=== PATIENT | female | born 1990 | race Caucasian/White ===

== ENCOUNTER 2017-11-11 17:46 | Emergency (ER) | payer BC, OTHER ==
[2017-11-11] VITALS (9 sets, daily range): BP systolic 121–129; BP diastolic 79–80; PULSE 82–98
[~2017-11-11 17:46] MED LIST: LORTA5 PO; NAPR500 OR; TRAM50 PO
--- NOTE | 2017-11-11 19:02 | PD ---
HPI Chief Complaint Elevated blood pressure Date Seen: Nov 11, 2017 Time Seen: 18:59 Travel History International Travel<30 Days: No Contact w/Intl Traveler<30Days: No Known Affected Area: No History of Present Illness HPI 27-year-old who is 38 weeks 3 days comes in with elevated blood pressure. She was seen in the office yesterday with a slight elevation of blood pressure was sent for blood work but does not have any results. She felt some abdominal pressure, had some visual changes, and felt that she had a headache so she went to [facility] ([facility] to get her blood pressure checked and it was 136/92. No other concerns during the and has otherwise been healthy. She does not remember her urine dip protein level in the office she did have a cervical exam she was 2 cm. Weeks Gestation: 38 Para: 0 : 2 History Past Medical History Medical History: Denies Significant Hx Past Surgical History Narrative Surgical Septoplasty and left knee surgery Family History Family History: Negative Social History Alcohol Use: No Tobacco Use: No Substance Abuse: No Allergies-Medications (Allergen,Severity, Reaction): Coded Allergies: ibuprofen (Unverified Allergy, Severe, hives, rash, SOB, 11/11/17) Home Meds Active Scripts Tramadol Hcl (Ultram) 50 Mg Tab, 50 MG PO Q6 for 5 Days FOR PAIN Prov:Eliud Oneal MD 09/19/13 Naproxen (Naprosyn) 500 Mg Tab, 500 MG OR BID for 10 Days Prov:Eliud Oneal MD 09/19/13 Hydrocodone/Acetaminophen 5 mg/325 mg (Hydrocodone/Acetaminophen 5 mg/325 mg) 1 Tab Tab, 1 TAB PO QID Y for PAIN, #20 Prov:GUILLERMO TAVERA M.D. 09/13/13 Review of Systems Except as stated in HPI: all other systems reviewed are Neg Physical Exam Narrative GENERAL: Well-nourished, well-developed patient. SKIN: Warm and dry. HEAD: Normocephalic and atraumatic. EYES: No scleral icterus. No injection or drainage. ENT: No nasal drainage noted. Mucous membranes pink. Airway patent. NECK: Supple, trachea midline. No JVD. CARDIOVASCULAR: Regular rate and rhythm without murmurs, gallops, or rubs. RESPIRATORY: Breath sounds equal bilaterally. No accessory muscle use. ABDOMEN/GI: Abdomen soft, non-tender, bowel sounds present, no rebound, no guarding Gravid to [-] weeks size Fundal Height: [-] GENITOURINARY: Deferred External Genitalia: intact and normal in appearance BUS glands: [-] Cervix: [-] Dilatation: [-] Effacement: [-] Station: [-] Presentation: [-] Membranes: [intact or ruptured] Uterine Contractions: [-] FHT's: Category: [-] 1 Baseline: [-] 140 Reactive: [-] Moderate Variability: [-] Moderate Decels: [-] Absent EXTREMITIES: No cyanosis, 1+ edema. BACK: Nontender without obvious deformity. No CVA tenderness. NEUROLOGICAL: Awake and alert. Motor and sensory grossly within normal limits. Five out of 5 muscle strength in all muscle groups. Normal speech. Data Data Vital Signs Reviewed: Yes Labs Laboratory Tests Test 11/11/17 18:10 11/11/17 18:49 Urine Color LIGHT-YELLOW Urine Turbidity CLEAR Urine pH 6.0 Urine Specific [place] Mark 1.010 Urine Protein NEG mg/dL Urine Glucose (UA) NEG mg/dL Urine Ketones NEG mg/dL Urine Occult Blood NEG Urine Nitrite NEG Urine Bilirubin NEG Urine Urobilinogen LESS THAN 2.0 MG/DL Urine Leukocyte Esterase TRACE Urine RBC 1 /hpf Urine WBC 3 /hpf Urine Squamous Epithelial Cells 3 /hpf Urine Bacteria FEW /hpf Urine Hyaline Casts 2 /lpf Microscopic Urinalysis Comment CULT NOT INDICATED Urine Random Creatinine 55 MG/DL Urine Random Total Protein 9 MG/DL Urine Protein/Creatinine Ratio 0.16 White Blood Count 10.4 TH/MM3 Red Blood Count 4.54 MIL/MM3 Hemoglobin 11.4 GM/DL Hematocrit 34.3 % Mean Corpuscular Volume 75.7 FL Mean Corpuscular Hemoglobin 25.1 PG Mean Corpuscular Hemoglobin Concent 33.2 % Red Cell Distribution Width 15.6 % Platelet Count 250 TH/MM3 Mean Platelet Volume 8.3 FL Blood Urea Nitrogen 10 MG/DL Creatinine 0.75 MG/DL Random Glucose 86 MG/DL Total Protein 6.8 GM/DL Albumin 2.7 GM/DL Calcium Level 8.7 MG/DL Uric Acid 4.2 MG/DL Alkaline Phosphatase 171 U/L Aspartate Amino Transf (AST/SGOT) 21 U/L Alanine Aminotransferase (ALT/SGPT) 22 U/L Total Bilirubin 0.3 MG/DL Sodium Level 137 MEQ/L Potassium Level 3.7 MEQ/L Chloride Level 103 MEQ/L Carbon Dioxide Level 24.7 MEQ/L Anion Gap 9 MEQ/L Estimat Glomerular Filtration Rate 93 ML/MIN [facility] Medical Record Reviewed: Yes Plan 27-year-old who is 38 weeks 3 days with mildly elevated blood pressures, normal preeclampsia workup, no proteinuria Continue bedrest is recommended by her physician with follow-up to her OB provider as already scheduled Diagnosis Diagnosis: Primary Impression: 38 weeks gestation of Additional Impression: Elevated blood pressure affecting in third trimester, antepartum Disposition: 01 DISCHARGE HOME Noemi Jara MD Nov 11, 2017 19:02
[2017-11-11] MEDS ORDERED: ACETAMINOPHEN 325 MG TAB PO ONE (19:15)
[2017-11-11] MEDS ORDERED: ONDANSETRON HCL 4 MG/2 ML VIAL IV PUSH ONE (19:15)
[2017-11-11 19:35] LABS: HEMATOCRIT 34.3 % (35.0-46.0); HEMOGLOBIN 11.4 GM/DL (11.6-15.3); MEAN CELL VOLUME 75.7 FL (80.0-100.0); MEAN CORPUSCULAR HEMOGLOBIN 25.1 PG (27.0-34.0); MEAN CORPUSCULAR HGB CONC 33.2 % (32.0-36.0); MEAN PLATELET VOLUME 8.3 FL (7.0-11.0); PLATELET COUNT 250 TH/MM3 (150-450); RED BLOOD COUNT 4.54 MIL/MM3 (4.00-5.30); RED CELL DISTRIBUTION WIDTH 15.6 % (11.6-17.2); WHITE BLOOD COUNT 10.4 TH/MM3 (4.0-11.0)
[2017-11-11 19:37] LABS: BACTERIA, URINE FEW /hpf; BILIRUBIN, URINE NEG (NEG); BLOOD, URINE NEG (NEG); GLUCOSE,URINE NEG (NEG); HYALINE CAST, URINE 2 /lpf (RARE); KETONE, URINE NEG (NEG); NITRITE,URINE NEG (NEG); SQUAMOUS EPITHELIAL CELL URINE 3 /hpf (0-5); URINE COLOR LIGHT-YELLOW (YELLW/STRAW); URINE LEUKOCYTE ESTERASE TRACE (NEG)
[2017-11-11 19:56] LABS: ALBUMIN 2.7 GM/DL (3.4-5.0); ALT (GPT) 22 U/L (10-53); AST (GOT) 21 U/L (15-37); BICARBONATE 24.7 MEQ/L (21.0-32.0); BLOOD UREA NITROGEN 10 MG/DL (7-18); CALCIUM 8.7 MG/DL (8.5-10.1); CHLORIDE 103 MEQ/L (98-107); CREATININE 0.75 MG/DL (0.50-1.00); GLOMERULAR FILTRATION RATE 93 ML/MIN (>89); GLUCOSE,RANDOM 86 MG/DL (74-106); SODIUM (NA) 137 MEQ/L (136-145)
[2017-11-11 19:58] LABS: ALKALINE PHOSPHATASE 171 U/L (45-117); TOTAL BILIRUBIN ADULT 0.3 MG/DL (0.2-1.0); TOTAL PROTEIN 6.8 GM/DL (6.4-8.2)
== END 2017-11-11 20:19 | disposition home or self-care (01) ==
LOC: HOBED 17:46
DX: O26.893 Other specified pregnancy related conditions, third trimester (principal); R03.0 Elevated blood-pressure reading, without diagnosis of hypertension; Z3A.38 38 weeks gestation of pregnancy
CPT/HCPCS: 36415; 59025; 80053; 81001; 82570; 84112; 84156; 84550; 85027

== ENCOUNTER 2017-11-17 20:14 | Emergency (ER) | payer BC ==
[~2017-11-17] VITALS: Ht 167.6 cm; Wt 79.4 kg
[2017-11-17] MEDS ORDERED: ONDANSETRON ODT 4 MG TAB PO ONE (21:30)
[2017-11-17] MEDS ORDERED: ZOFR4TAB3 SL (21:34)
--- NOTE | 2017-11-17 21:34 | PD ---
HPI Chief Complaint Complains of contractions & nausea and vomiting for 24 hours Date Seen: November 17, 2017 Time Seen: 21:25 Travel History International Travel<30 Days: No Contact w/Intl Traveler<30Days: No Known Affected Area: No History of Present Illness HPI 27-year-old white female 39 weeks patient of who presents with contractions that have been going on all day and nausea and vomiting for 24 hours her family states she has held nothing down for 24 hours, she is taking no medication at all for this. heart rate tracing is reactive and she is blayne every 2 minutes Weeks Gestation: 39 Para: 0 : 2 Miscarriage: 1 History Obstetric History Obstetric History 1 early loss Social History Alcohol Use: No Tobacco Use: No Substance Abuse: No Allergies-Medications (Allergen,Severity, Reaction): Coded Allergies: ibuprofen (Unverified Allergy, Severe, hives, rash, SOB, 11/11/17) Home Meds Active Scripts Tramadol Hcl (Ultram) 50 Mg Tab, 50 MG PO Q6 for 5 Days FOR PAIN Prov:Eliud Oneal MD 09/19/13 Naproxen (Naprosyn) 500 Mg Tab, 500 MG OR BID for 10 Days Prov:Eliud Oneal MD 09/19/13 Hydrocodone/Acetaminophen 5 mg/325 mg (Hydrocodone/Acetaminophen 5 mg/325 mg) 1 Tab Tab, 1 TAB PO QID Y for PAIN, #20 Prov:GUILLERMO TAVERA M.D. 09/13/13 Review of Systems General / Constitutional: No: Fever, Weight Gain, Chills, Other Eyes: No: Diploplia, Blurred Vision, Visual changes, Pain, Photophobia HENT: No: Headaches, Vertigo, Lightheadedness Cardiovascular: No: Irregular Rhythm, Chest Pain or Discomfort, Palpitations, Tachycardia, Syncope, Varicosities, Edema, Cyanosis Respiratory: No: Cough, Short of Breath, Other Gastrointestinal: Nausea, Vomiting, Diarrhea, Abdominal Pain Genitourinary: No: Decreased Urinary Output, Oliguria Musculoskeletal: No: Limited ROM, Weakness, Cramping, Edema, Pain Skin: No Rash, No Itching, No Dryness, No Lumps, No Change in Pigmentation, No Change in Nails, No Alopecia, No Lesions Neurologic: No: Weakness, Dizziness, Syncope, Focal Abnormalities, Coordination Problem, Headache, Slurred Speech, Seizures Psychiatric: No: Depression, Suicidal Ideations, Homicidal Ideation Endocrine: No: Heat Intolerance, Cold Intolerance, Polydipsia, Polyuria, Other Physical Exam Narrative GENERAL: Well-nourished, well-developed patient. SKIN: Warm and dry. HEAD: Normocephalic and atraumatic. EYES: No scleral icterus. No injection or drainage. ENT: No nasal drainage noted. Mucous membranes pink. Airway patent. NECK: Supple, trachea midline. No JVD. CARDIOVASCULAR: Regular rate and rhythm without murmurs, gallops, or rubs. RESPIRATORY: Breath sounds equal bilaterally. No accessory muscle use. BREASTS: Bilateral exam showed no masses , no retractions, no nipple discharge. ABDOMEN/GI: Abdomen soft, non-tender, bowel sounds present, no rebound, no guarding Gravid to [-39] weeks size Fundal Height: [39-] GENITOURINARY: External Genitalia: intact and normal in appearance BUS glands: [-] Cervix: [post-] Dilatation: [-3] Effacement: [-50] Station: [-3] Presentation: [vtx-] Membranes: [intact ] Uterine Contractions: [-q 2 min] FHT's: Category: [-1] Baseline: [133-] Reactive: [-R] Variability: [-mod] Decels: [-none] EXTREMITIES: No cyanosis or edema. BACK: Nontender without obvious deformity. No CVA tenderness. NEUROLOGICAL: Awake and alert. Motor and sensory grossly within normal limits. Five out of 5 muscle strength in all muscle groups. Normal speech. Data Data Orders Orders Ondansetron Odt (Zofran Odt) (11/17/17 21:30) Labs Urine dip within normal limits MDM Interpretation(s) Patient is 27-year-old white female 39 weeks patient to the [facility] clinic presents with contraction of nausea vomiting, cervix is essentially unchanged from when she was checked in the office today she is 3/50/-3/vertex, she is blayne every 2 minutes at this time and she says that she makes no clinic signs show significant pain. heart tracing is reactive contractions as above Plan Plan the patient is to go home this evening for observation return for increasing pain, bleeding, leakage of fluid. She was given the option to stay in the hospital might proceed with IV fluid because of vomiting but she would rather try Zofran ODT and see if that allow her to stay home for the next 12-24 hours. I relayed to the patient if she is going to go into labor, cervix approximately 12 hours before she is in a more labor pattern with change of the cervix Diagnosis Diagnosis: Primary Impression: Shar Wyman contractions Additional Impressions: Nausea and vomiting during 39 weeks gestation of Disposition: 01 DISCHARGE HOME Condition: Stable Scripts Ondansetron Odt (Zofran Odt) 4 Mg Tab 4 MG SL Q6HR Y for Nausea/Vomiting, #10 TAB 0 Refills Prov: Dhiraj Moon II, MD 11/17/17 Dhiraj Moon II, MD November 17, 2017 21:34
== END 2017-11-17 21:51 | disposition home or self-care (01) ==
LOC: HOBED 20:14
DX: O47.1 False labor at or after 37 completed weeks of gestation (principal); O21.2 Late vomiting of pregnancy; Z3A.39 39 weeks gestation of pregnancy; Z79.899 Other long term (current) drug therapy
CPT/HCPCS: 99284

== ENCOUNTER 2017-11-19 05:15 | Inpatient (IN) | payer BC ==
[2017-11-19] VITALS (104 sets, daily range): BP systolic 96–149; BP diastolic 61–111; PULSE 56–118; RESP 16–20; TEMP 98.2–98.4; O2SAT 100
[~2017-11-19] VITALS: Ht 167.6 cm; Wt 79.0 kg
[~2017-11-19 05:15] MED LIST changes: +ZOFR4TAB3 SL
[2017-11-19] MEDS ORDERED: LACTATED RINGER'S 1000 ML INJ 1,000 ML IV PRN (06:01)
--- NOTE | 2017-11-19 06:01 | HHI.HP ---
History & Physical H&P HPI HPI Chief Complaint Contractions Date Seen: November 19, 2017 Time Seen: 05:54 Travel History International Travel<30 Days: No Contact w/Intl Traveler<30Days: No Known Affected Area: No History of Present Illness HPI 27-year-old primigravida with EDC of 11/23/2017 who presents with increasing contractions since 11 PM last night. She denies leakage of fluid or bleeding. She was 3 cm dilated on Monday and is now 4-5 cm 70% effaced, vertex, -2 station. History (Limited) History Past Medical History Medical History: Denies Significant Hx Obstetric History Obstetric History Primigravida under the care of Dr. Farooq, GBS negative Second trimester urinary tract infection treated Past Surgical History Narrative Surgical Nasal septal surgery, left knee surgery Family History Family History: Negative Social History Alcohol Use: No Tobacco Use: No Substance Abuse: No Allergies-Medications Allergies-Medications (Allergen,Severity, Reaction): Coded Allergies: ibuprofen (Unverified Allergy, Severe, hives, rash, SOB, 11/11/17) Home Meds Active Scripts Ondansetron Odt (Zofran Odt) 4 Mg Tab, 4 MG SL Q6HR Y for Nausea/Vomiting, #10 TAB 0 Refills Prov:Dhiraj Moon II, MD 11/17/17 Tramadol Hcl (Ultram) 50 Mg Tab, 50 MG PO Q6 for 5 Days FOR PAIN Prov:Eliud Oneal MD 09/19/13 Naproxen (Naprosyn) 500 Mg Tab, 500 MG OR BID for 10 Days Prov:Eliud Oneal MD 09/19/13 Hydrocodone/Acetaminophen 5 mg/325 mg (Hydrocodone/Acetaminophen 5 mg/325 mg) 1 Tab Tab, 1 TAB PO QID Y for PAIN, #20 Prov:GUILLERMO TAVERA M.D. 09/13/13 ROS Review of Systems Except as stated in HPI: all other systems reviewed are Neg Physical Exam Physical Exam Narrative GENERAL: Well-nourished, well-developed patient. SKIN: Warm and dry. HEAD: Normocephalic and atraumatic. EYES: No scleral icterus. No injection or drainage. ENT: No nasal drainage noted. Mucous membranes pink. Airway patent. NECK: Supple, trachea midline. No JVD. CARDIOVASCULAR: Regular rate and rhythm without murmurs, gallops, or rubs. RESPIRATORY: Breath sounds equal bilaterally. No accessory muscle use. ABDOMEN/GI: Abdomen soft, non-tender, bowel sounds present, no rebound, no guarding Gravid to [-] weeks size Fundal Height: [-] GENITOURINARY: External Genitalia: intact and normal in appearance BUS glands: [-Negative] Cervix: [-] Dilatation: [-4-5] Effacement: [-70] Station: [--2] Presentation: [-v] Membranes: [intact] Uterine Contractions: [q2-4-] FHT's: Category: [-2] Baseline: [-] Reactive: [y-] Variability: [-mod] Decels: [-tabitha] EXTREMITIES: No cyanosis or edema. BACK: Nontender without obvious deformity. No CVA tenderness. NEUROLOGICAL: Awake and alert. Motor and sensory grossly within normal limits. Five out of 5 muscle strength in all muscle groups. Normal speech. Data Data Data Vital Signs Reviewed: Yes Group B Strep: Negative MDM MDM Medical Record Reviewed: Yes Narrative Course / MDM Assessment: Primigravida at 39 weeks in early labor Plan: Admit for labor management Eliud De Oliveira MD November 19, 2017 06:00 Eliud De Oliveira MD November 19, 2017 06:01
[2017-11-19] MEDS ORDERED: PRENTAB7 PO ×2 (06:14)
[2017-11-19] MEDS ORDERED: TYLE325T PO ×2 (06:14)
[2017-11-19] MEDS ORDERED: ONDANSETRON HCL 4 MG/2 ML VIAL IV PUSH PRN (06:15)
[2017-11-19] MEDS ORDERED: SODIUM CHLORID 0.9% 500 ML INJ 500 ML IV PRN (06:15)
[2017-11-19] MEDS ORDERED: LIDOCAINE HCL 1% 50 ML VIAL INFIL PRN (06:15)
[2017-11-19] MEDS ORDERED: OXYTOCIN 30 UNITS-500ML PREMIX 500 ML IV ONE (06:15)
[2017-11-19] MEDS ORDERED: CITRIC ACID-SODIUM CITRATE LIQ 30 ML UDC PO SCH (06:15)
[2017-11-19] MEDS ORDERED: MINERAL OIL 10 ML VIAL TOPICAL PRN (06:15)
[2017-11-19] MEDS ORDERED: LIDOCAINE HCL 1% 50 ML VIAL I-DERMAL PRN (06:15)
[2017-11-19] MEDS ORDERED: SODIUM CHLOR 0.9% 1000 ML INJ 1,000 ML IV PRN (06:21)
[2017-11-19] MEDS ORDERED: fentaNYL 2MCG-BUPIV 0.125% INJ 100 ML ONE (07:06)
[2017-11-19] MEDS ORDERED: ePHEDrine/NS 25 MG/5 ML SYRINGE ONE (07:09)
[2017-11-19 07:12] LABS: AUTOMATED NEUTROPHIL # 10.5 TH/MM3 (1.8-7.7); BASOPHIL % 0.2 % (0.0-2.0); EOSINOPHIL # 0.1 TH/MM3 (0-0.4); HEMATOCRIT 36.6 % (35.0-46.0); HEMOGLOBIN 11.9 GM/DL (11.6-15.3); LYMPH % 12.1 % (9.0-44.0); LYMPHOCYTE # 1.6 TH/MM3 (1.0-4.8); MEAN CELL VOLUME 76.2 FL (80.0-100.0); MEAN CORPUSCULAR HEMOGLOBIN 24.8 PG (27.0-34.0); MEAN CORPUSCULAR HGB CONC 32.5 % (32.0-36.0); MEAN PLATELET VOLUME 8.5 FL (7.0-11.0); MONO % 5.5 % (0.0-8.0); MONOCYTE # 0.7 TH/MM3 (0-0.9); NEUT % 81.2 % (16.0-70.0); PLATELET COUNT 278 TH/MM3 (150-450); RED CELL DISTRIBUTION WIDTH 15.7 % (11.6-17.2); WHITE BLOOD COUNT 12.9 TH/MM3 (4.0-11.0)
[2017-11-19] MEDS ORDERED: LIDOCAINE 1%/EPINEPHrine 1:200,000 PF SOLN 30 ML VIAL ONE (07:25)
[2017-11-19] MEDS: LACTATED RINGER'S 1000 ML INJ 1,000 ML IV SCH ×2 (07:33→11:08)
[2017-11-19] MEDS ORDERED: ePHEDrine/NS 25 MG/5 ML SYRINGE IV PUSH PRN (09:00)
[2017-11-19] MEDS ORDERED: fentaNYL 2MCG-BUPIV 0.125% 100 ML EPIDURAL PRN (09:00)
[2017-11-19] MEDS ORDERED: DO NOT ADMINISTER ANTICOAGULANTS PRN (09:00)
[2017-11-19] MEDS ORDERED: NO SYSTEM NARCOTICS PRN (09:00)
--- NOTE | 2017-11-19 09:44 | PD.LABORPN ---
Subjective Subjective Patient reports good relief with epidural. Objective Vital Signs Vital Signs Date Time Temp Pulse Resp B/P (MAP) Pulse Ox O2 Delivery O2 Flow Rate FiO2 11/19/17 09:25 74 11/19/17 09:20 78 11/19/17 09:16 75 129/81 (97) 11/19/17 09:15 85 11/19/17 09:05 72 11/19/17 09:00 73 126/74 (91) 11/19/17 09:00 66 11/19/17 09:00 16 11/19/17 08:55 67 11/19/17 08:50 74 11/19/17 08:46 78 11/19/17 08:45 82 11/19/17 08:40 82 11/19/17 08:35 82 11/19/17 08:31 76 121/74 (90) 11/19/17 08:30 82 11/19/17 08:25 76 11/19/17 08:20 79 11/19/17 08:16 85 135/74 (94) 11/19/17 08:15 85 11/19/17 08:10 78 11/19/17 08:10 84 126/75 (92) 11/19/17 08:05 89 11/19/17 08:05 87 123/64 (83) 11/19/17 08:00 86 11/19/17 08:00 82 125/82 (96) 11/19/17 08:00 98.4 11/19/17 07:55 85 16 126/74 (91) 11/19/17 07:50 89 126/78 (94) 11/19/17 07:50 89 11/19/17 07:45 93 138/86 (103) 11/19/17 07:45 92 11/19/17 07:40 86 11/19/17 07:35 84 11/19/17 07:35 129/84 (99) 11/19/17 07:31 82 136/92 (107) 11/19/17 07:30 82 Objective Pelvic Exam: Cervix: [-] Dilatation: [4-5-] Effacement: [90-] Station: [-2-] Presentation: [-v] Membranes: [ruptured, meconium fluid noted] Uterine Contractions: [-Irregular 2 to 4] FHT's: Category: [-1] Baseline: [-] Reactive: [-] Variability: [-Moderate] Decels: [-Rare variable] Gest Age Assessed Date: November 19, 2017 Gest Age Assessed Time: 09:43 Pt started active labor?: No Artificial rupture of membrane: Yes Artificial ROM date: November 19, 2017 Artifical ROM time: 09:33 Assessment/Plan Assessment and Plan Assessment: Primigravida in early labor, meconium Plan: IUPC was placed Eliud De Oliveira MD November 19, 2017 09:44
[2017-11-19] MEDS ORDERED: OXYTOCIN 30 UNITS-500ML PREMIX 500 ML IV PRN (11:15)
[2017-11-19] MEDS ORDERED: LIDOCAINE HCL 1% PF 30 ML VIAL ONE (14:20)
--- NOTE | 2017-11-19 14:29 | PD.OB.DELI ---
Gest age assessed date: November 19, 2017 Gest age assessed time: 09:43 Pt started active labor?: Yes Active labor start date: November 19, 2017 Active labor start time: 02:00 Artificial rupture of membrane: Yes Artificial ROM date: November 19, 2017 Artifical ROM time: 09:33 Anesthesia: Epidural Episiotomy: None Vaginal Delivery: Normal Presentation: Occiput anterior Nuchal Cord: x1 (easily reduced) Delayed cord clamping (45 sec): Yes (45 sec) Shoulder Dystocia: Naveed maneuver done : Male Delivery date: November 19, 2017 Delivery time: 14:16 One Minute : 8 Five Minute : 9 Placenta: Spontaneous delivery Laceration: Vaginal laceration, 1 deg (right lateral) Repair: Chromic interrupted Estimated blood loss: 200cc Eliud Casron MD November 19, 2017 14:29
[2017-11-19] MEDS ORDERED: ZOLPIDEM TARTRATE 5 MG TAB PO PRN (14:30)
[2017-11-19] MEDS ORDERED: IBUPROFEN 800 MG TAB PO PRN (14:30)
[2017-11-19] MEDS ORDERED: DOCUSATE SODIUM 50 MG/SENNA 8.6 MG TAB PO PRN (14:30)
[2017-11-19] MEDS ORDERED: OXYTOCIN 10 UNIT/ML AMP XX PRN (14:30)
[2017-11-19] MEDS ORDERED: ALUMINUM/MAGNESIUM/SIMETH 30 ML CUP PO PRN (14:30)
[2017-11-19] MEDS ORDERED: SODIUM CHLORIDE 0.9% FLUSH 10 ML FLUSH IV FLUSH PRN (14:30)
[2017-11-19] MEDS ORDERED: OXYTOCIN 30 UNITS-500ML PREMIX 500 ML IV SCH (14:30)
[2017-11-19] MEDS ORDERED: ONDANSETRON ODT 4 MG TAB PO PRN (14:30)
[2017-11-19] MEDS ORDERED: SODIUM CHLORIDE 0.9% FLUSH 10 ML FLUSH IV FLUSH SCH (14:30)
[2017-11-19] MEDS ORDERED: DIPHTH/TETANUS/ACEL PERTUSSIS (BOOSTER) 0.5 ML VIAL/PFS IM ONE (16:00)
[2017-11-19] MEDS ORDERED: MEASLES, MUMPS, RUBELLA VACCINE 0.5 ML VIAL SQ ONE (16:00)
[2017-11-19] MEDS: ACETAMINOPHEN 325 MG TAB PO PRN ×2 (16:19→21:29)
[2017-11-19] MEDS: BENZOCAINE 20% TOPICAL SPRAY 60 ML CAN TOPICAL PRN (18:22)
[2017-11-19] MEDS: WITCH HAZEL 50%/GLYCERIN 12.5% 40 PAD JAR TOPICAL PRN (18:22)
[2017-11-20] MEDS: ACETAMINOPHEN 325 MG TAB PO PRN ×4 (01:59→17:47)
[2017-11-20 07:57] VITALS: BP 107/75; PULSE 79; RESP 20; TEMP 97.8; O2SAT 99
--- NOTE | 2017-11-20 08:39 | HHI.DCPOC ---
Discharge Care Plan Diagnosis: (1) Normal vaginal delivery Your Health Problems Are: Vaginal delivery Report Symptoms to Your Doctor -Temperature above 100.5 degrees -Redness, of incision or excessive or foul smelling drainage -Unusual pain or calf pain -Increased vaginal bleeding -Painful or difficulty urinating -Feelings of extreme sadness or anxiety after 2 weeks Goals to Promote Your Health * To prevent worsening of your condition and complications * To maintain your health at the optimal level Directions to Meet Your Goals Take your medications as prescribed Follow your dietary instruction Follow activity as directed Ensure plenty of rest for recovery Drink fluids for hydration Keep your appointments as scheduled Take your immunizations and boosters as scheduled If your symptoms worsen call your PCP, if no PCP go to Urgent Care Center or Emergency Room Smoking is Dangerous to Your Health. Avoid second hand smoke Call the 24-hour crisis hotline for domestic abuse at Jimy Little MD November 20, 2017 08:39
[2017-11-20] MEDS: LACTATED RINGER'S 1000 ML INJ 1,000 ML IV SCH (09:52)
--- NOTE | 2017-11-20 12:12 | HHI.OB ---
Subjective Post Day: 1 Remarks s/p uncomplicated of healthy male Objective Vitals/I&O Vital Signs Date Time Temp Pulse Resp B/P (MAP) Pulse Ox O2 Delivery O2 Flow Rate FiO2 11/20/17 07:57 97.8 79 20 107/75 (86) 99 11/19/17 16:01 80 124/77 (93) 11/19/17 15:45 80 129/77 (94) 11/19/17 15:30 82 125/86 (99) 11/19/17 15:30 18 11/19/17 15:30 82 125/86 (99) 11/19/17 15:14 20 11/19/17 15:14 85 11/19/17 15:14 134/83 (100) 11/19/17 15:00 85 18 96/83 (87) 11/19/17 14:45 20 11/19/17 14:30 20 11/19/17 14:30 98.3 11/19/17 14:16 76 138/111 (120) 11/19/17 14:15 100 11/19/17 14:05 118 11/19/17 14:01 103 126/73 (90) 11/19/17 13:56 20 11/19/17 13:55 100 11/19/17 13:50 109 11/19/17 13:45 99 11/19/17 13:45 95 149/73 (98) 11/19/17 13:40 90 11/19/17 13:35 80 11/19/17 13:30 91 132/90 (104) 11/19/17 13:30 85 11/19/17 13:25 92 11/19/17 13:20 62 18 13:16 62 132/77 (95) 11/19/17 13:15 79 11/19/17 13:10 56 11/19/17 13:05 69 11/19/17 13:01 76 136/87 (103) 11/19/17 13:00 72 11/19/17 12:56 74 135/72 (93) 11/19/17 12:55 79 11/19/17 12:51 78 131/68 (89) 11/19/17 12:50 76 11/19/17 12:46 98.2 18 11/19/17 12:46 69 134/82 (99) 11/19/17 12:45 80 11/19/17 12:40 100 11/19/17 12:35 79 11/19/17 12:31 95 133/74 (93) 11/19/17 12:30 89 11/19/17 12:25 67 11/19/17 12:20 87 11/19/17 12:16 106 129/79 (96) 11/19/17 12:15 77 129/86 (100) 11/19/17 12:15 75 Objective Remarks GENERAL: Well-nourished, well-developed patient. CARDIOVASCULAR: Regular rate and rhythm without murmurs, gallops, or rubs. RESPIRATORY: Breath sounds equal bilaterally. No accessory muscle use. ABDOMEN/GI: Abdomen soft, non-tender. Fundus: Firm, non-tender at umbilicus. GENITOURINARY: Light to moderate bleeding. EXTREMITIES: No cyanosis or edema, non-tender, without signs of DVT. Medications and IVs Current Medications Medications (Trade) Dose Ordered Sig/French Route Start Time Stop Time Status Last Admin Lactated Ringer's 1,000 ml @ 125 mls/hr Q8H IV 11/19/17 06:01 11/19/17 11:08 Lactated Ringer's 1,000 ml @ 3,000 mls/hr Q20M PRN IV 11/19/17 06:01 Sodium Chloride 500 ml @ 1,000 mls/hr ONCE PRN IV 11/19/17 06:15 11/26/17 06:14 Sodium Chloride 1,000 ml @ 100 mls/hr Q10H PRN IV 11/19/17 06:21 (Xylocaine 1% Inj (50 ml)) 0.1 ml UNSCH X1 PRN I-DERMAL 11/19/17 06:15 11/22/17 06:14 (Bicitra Liq) 30 ml SLAT TWISTER PO 11/19/17 06:15 11/23/17 06:14 (Zofran Inj) 4 mg Q6H PRN IV PUSH 11/19/17 06:15 (fentaNYL INJ) 50 mcg Q1H PRN IV PUSH 11/19/17 06:15 11/19/17 10:49 (fentaNYL INJ) 100 mcg Q1H PRN IV PUSH 5/6/18 06:15 (Xylocaine 1% Inj (50 ml)) 10 ml UNSCH X1 PRN INFIL 11/19/17 06:15 11/21/17 06:14 (Muri-Lube Oil) 10 ml UNSCH PRN TOPICAL 11/19/17 06:15 Fentanyl/ Bupivacaine HCl 100 ml @ 12 mls/hr TITRATE PRN EPIDURAL 11/19/17 09:00 Oxytocin 500 ml @ 0 mls/hr TITRATE PRN IV 11/19/17 11:15 (Pitocin Inj) 20 units UNSCH X1 PRN XX 11/19/17 14:30 11/20/17 14:29 (NS Flush) 2 ml BID IV FLUSH 11/19/17 14:30 (NS Flush) 2 ml UNSCH PRN IV FLUSH 11/19/17 14:30 (Tylenol) 650 mg Q4H PRN PO 11/19/17 14:30 11/20/17 07:36 (Americaine 20% Top Spr) 1 spray Q4H PRN TOPICAL 11/19/17 14:30 11/19/17 18:22 (Tucks Pads) 1 applic QID PRN TOPICAL 11/19/17 14:30 11/19/17 18:22 (Yanna-Colace) 2 tab Q12H PRN PO 11/19/17 14:30 11/19/17 21:29 (Ambien) 5 mg HS PRN PO 11/19/17 14:30 (Mag-Al Plus Susp Liq) 15 ml Q8H PRN PO 11/19/17 14:30 (Zofran Odt) 4 mg Q6H PRN PO 11/19/17 14:30 Assessment/Plan Problem List: (1) Normal vaginal delivery ICD Codes: O80 - Encounter for full-term uncomplicated delivery Status: Acute Assessment and Plan PPD#1 routine care continue supportive care infant for circ prior to d/c anticipate d/c to home tmrw 11/21/17 Discharge Planning routine Judith Rodrigues MD November 20, 2017 12:12
[2017-11-20] MEDS ORDERED: PERI PO (12:14)
[2017-11-20] MEDS ORDERED: PERC5TAB12 PO (12:14)
[2017-11-20 20:00] VITALS: BP 126/77; PULSE 70; RESP 18; TEMP 98
[2017-11-21] MEDS: ACETAMINOPHEN 325 MG TAB PO PRN (01:31)
[2017-11-21] MEDS: WITCH HAZEL 50%/GLYCERIN 12.5% 40 PAD JAR TOPICAL PRN ×2 (06:30→08:06)
--- NOTE | 2017-11-21 06:38 | HHI.OB ---
Subjective Post Day: 2 Objective Vitals/I&O Vital Signs Date Time Temp Pulse Resp B/P (MAP) Pulse Ox O2 Delivery O2 Flow Rate FiO2 11/20/17 20:00 98.0 70 18 126/77 (93) 11/20/17 07:57 97.8 79 20 107/75 (86) 99 Objective Remarks GENERAL: Well-nourished, well-developed patient. CARDIOVASCULAR: Regular rate and rhythm without murmurs, gallops, or rubs. RESPIRATORY: Breath sounds equal bilaterally. No accessory muscle use. ABDOMEN/GI: Abdomen soft, non-tender. Fundus: Firm, non-tender at umbilicus. GENITOURINARY: Light bleeding. EXTREMITIES: No cyanosis or edema, non-tender, without signs of DVT. Medications and IVs Current Medications Medications (Trade) Dose Ordered Sig/French Route Start Time Stop Time Status Last Admin Lactated Ringer's 1,000 ml @ 125 mls/hr Q8H IV 11/19/17 06:01 11/19/17 11:08 Lactated Ringer's 1,000 ml @ 3,000 mls/hr Q20M PRN IV 11/19/17 06:01 Sodium Chloride 500 ml @ 1,000 mls/hr ONCE PRN IV 11/19/17 06:15 11/26/17 06:14 Sodium Chloride 1,000 ml @ 100 mls/hr Q10H PRN IV 11/19/17 06:21 (Xylocaine 1% Inj (50 ml)) 0.1 ml UNSCH X1 PRN I-DERMAL 11/19/17 06:15 11/22/17 06:14 (Bicitra Liq) 30 ml NURSERY NURSE PO 11/19/17 06:15 11/23/17 06:14 (Zofran Inj) 4 mg Q6H PRN IV PUSH 11/19/17 06:15 (fentaNYL INJ) 50 mcg Q1H PRN IV PUSH 11/19/17 06:15 11/19/17 10:49 (fentaNYL INJ) 100 mcg Q1H PRN IV PUSH 11/19/17 06:15 (Muri-Lube Oil) 10 ml UNSCH PRN TOPICAL 11/19/17 06:15 Fentanyl/ Bupivacaine HCl 100 ml @ 12 mls/hr TITRATE PRN EPIDURAL 11/19/17 09:00 Oxytocin 500 ml @ 0 mls/hr TITRATE PRN IV 11/19/17 11:15 (NS Flush) 2 ml BID IV FLUSH 11/19/17 14:30 (NS Flush) 2 ml UNSCH PRN IV FLUSH 11/19/17 14:30 (Tylenol) 650 mg Q4H PRN PO 11/19/17 14:30 11/21/17 01:31 (Americaine 20% Top Spr) 1 spray Q4H PRN TOPICAL 11/19/17 14:30 11/19/17 18:22 (Tucks Pads) 1 applic QID PRN TOPICAL 11/19/17 14:30 11/19/17 18:22 (Yanna-Colace) 2 tab Q12H PRN PO 11/19/17 14:30 11/19/17 21:29 (Ambien) 5 mg HS PRN PO 11/19/17 14:30 (Mag-Al Plus Susp Liq) 15 ml Q8H PRN PO 11/19/17 14:30 (Zofran Odt) 4 mg Q6H PRN PO 11/19/17 14:30 Assessment/Plan Problem List: (1) Normal vaginal delivery ICD Codes: O80 - Encounter for full-term uncomplicated delivery Status: Acute Assessment and Plan PPD#2 routine care continue supportive care confusion re: circ; pt states prepaid but office records not consistent; will wait for office to open to discuss with billing staff; possible circ prior to d/c d/c to home today Discharge Planning routine Judith Rodrigues MD November 21, 2017 06:38
[2017-11-21 07:43] VITALS: BP 111/74; PULSE 62; RESP 18; TEMP 97.8
[2017-11-21] MEDS: BENZOCAINE 20% TOPICAL SPRAY 60 ML CAN TOPICAL PRN (08:06)
== END 2017-11-21 12:47 | disposition home or self-care (01) | DRG 775 ==
LOC: HOBED 05:15 → H2EB 06:05 → H1EA 16:30
PROVIDERS: ADMIT Obstetrics & Gynecology; ATTEND Obstetrics & Gynecology
PROC: 10E0XZZ Delivery of Products of Conception, External Approach (ICD-10-PCS; principal; 2017-11-19)
PROC: 0HQ9XZZ Repair Perineum Skin, External Approach (ICD-10-PCS; 2017-11-19)
PROC: 10907ZC Drainage of Amniotic Fluid, Therapeutic from Products of Conception, Via Natural or Artificial Opening (ICD-10-PCS; 2017-11-19)
DX: O66.0 Obstructed labor due to shoulder dystocia (principal); O71.4 Obstetric high vaginal laceration alone; O69.81X0 Labor and delivery complicated by cord around neck, without compression, not applicable or unspecified; O77.0 Labor and delivery complicated by meconium in amniotic fluid; Z3A.39 39 weeks gestation of pregnancy; Z37.0 Single live birth
CPT/HCPCS: 59025; 80307; 85025; 86900; 86901; 90715; G0481; J3010; J7120